=== PATIENT | male | born 1975 | race Caucasian/White ===

== ENCOUNTER 2022-05-13 06:48 | Emergency (ER) | payer OTHER ==
[2022-05-13 07:01] VITALS: BP 151/96; PULSE 95; RESP 16; TEMP 98.7; BMI 35.9
[2022-05-13] MEDS ORDERED: SODIUM CHLORIDE 0.9% 1000 ML INFUS.BAG IV ONE (07:22)
[2022-05-13] MEDS ORDERED: ACETAMINOPHEN 1000 MG/100 ML BAG IVPB ONE (07:22)
[2022-05-13] MEDS ORDERED: ACETAMINOPHEN INJECTION 100 ML IVPB ONE (07:25)
[2022-05-13 07:50] LABS: HEMATOCRIT 49.3 % (35.4-49); HEMOGLOBIN 17.3 G/dL (11.7-16.9); MCH 29.5 pg (25.7-33.7); MCHC 35.1 g/dl (32.0-35.9); MEAN CELL VOLUME 83.8 fl (80-96); MEAN PLT VOLUME 8.8 fl (7.5-11.1); PLATELET COUNT 264.9 10^3/uL (134-434); RBC 5.88 10^6/uL (4.00-5.60); RDW 13.8 % (11.9-15.9); WHITE BLOOD COUNT 15.3 10^3/uL (4.0-10.8)
[2022-05-13 07:59] LABS: ALBUMIN 4.1 g/dl (3.4-5.0); BILIRUBIN,TOTAL 0.7 mg/dl (0.2-1); CALCIUM 9.1 mg/dl (8.5-10); CREATININE 1.3 mg/dl (0.55-1.3); TOT PROT 7.4 g/dl (6.4-8.2)
== END 2022-05-13 10:20 | disposition home or self-care (01) ==
LOC: FER 06:48
PROC: 3E0333Z Introduction of Anti-inflammatory into Peripheral Vein, Percutaneous Approach (ICD-10-PCS; principal; 2022-05-13)
DX: N20.0 Calculus of kidney (principal)
CPT/HCPCS: 36415; 74177-TC; 80053; 81003; 85027; 87086; 99285-25; Q9967